=== PATIENT | female | born 1960 | race Caucasian/White ===

== ENCOUNTER 2018-10-17 08:30 | Emergency (ER) | payer OTHER, SELFPAY ==
[2018-10-17 08:36] VITALS: BP 149/94; PULSE 94; RESP 18; TEMP 36.7; O2SAT 100
--- NOTE | 2018-10-17 08:56 | ED.GENADUL_ITS ---
Discharge Plan Disposition Patient Disposition: HOME Condition: Stable Discharge Details Chief Complaint: Allergic Clinical Impression: Acute allergic reaction Primary Care Provider: Mary Medina ED Provider: Sergio Smith Home Meds and New Rx's Prescriptions: New prednisone 20 mg tablet 40 mg PO DAILY 4 Days Qty: 8 RF: 0 Continued cetirizine [Zyrtec] 10 MG tablet 10 mg PO DAILY RF: 0 ibuprofen 200 MG capsule 200 mg PO Q6H PRN RF: 0 Discharge Instructions Instructions: General Allergic Reaction (ED) Additional Instructions: You may continue to use [id number] Benadryl 50 mg every 4 hours as needed for itching or swelling, he may also take [id number] ranitidine/Zyrtec 150 mg daily. Please take steroids as prescribed and return immediately to the emergency department for any new or significant worsening of symptoms, difficulty breathing, or any further concerns. Otherwise follow-up with your primary care provider as needed. Referrals: Mary Medina, [facility] [Primary Care Provider] - (as needed) Medical Decision Making Patient presenting to the emergency department for chief complaint of lip swelling. Patient states that this started approximately 30 minutes after having a taco with vlad guadalupe. Patient states multiple food allergies. She reports taking Benadryl last night and this morning with no improvement of right upper lip swelling. Patient denies any difficulty breathing or swallowing, swelling to her tongue or throat, denies any other symptoms. Physical exam does show an isolated right upper lip that is swollen otherwise no swelling to the tongue, oropharynx, no respiratory distress, no systemic symptoms. At this time I do not feel that patient is presenting with anaphylactic type reaction but with acute allergic reaction. Plan to treat patient with additional Benadryl, Zantac, and steroids and brief observation. Patient was in the ER for over 1 hour with no new or worsening symptoms, no difficulty breathing, no spread of symptoms. Due to this and that initial onset was approximately 17 hours ago I do not feel the patient needs to have further observation in the emergency department. Patient was placed upon prednisone for an additional 4 days and instructed on use of Benadryl and Zantac as needed. Return precautions were discussed. After discussion of diagnosis and plan of care patient has no further needs, questions, or concerns and states clear understanding to return to the emergency department for any worsening symptoms. HPI General Mode of arrival: ambulatory . Date/Time Provider Initiated Documentation: 10/17/18 08:31 . Limitations to Documentation: no limitations . Information obtained by: patient . History of Present Illness 58 year old F presents to the emergency department with the chief complaint of Allergic reaction, described as mild, with intensity rated at 6. and is localized to the face and right (Upper). Patient started experiencing this hour(s) (17) and it has been constant. No relieving factors improve symptom(s), Eating worsens symptoms . Patient notes no other symptoms.. Patient did receive the following treatments prior to arrival, other (Benadryl) Related Data Home Medications Medication Instructions Recorded Confirmed cetirizine [Zyrtec] 10 mg PO DAILY tab-cap NS 04/27/13 10/17/18 ibuprofen 200 mg PO Q6H PRN tab-cap NS 04/27/13 10/17/18 prednisone 40 mg PO DAILY 4 Days #8 tab 10/17/18 Previous Rx's Medication Instructions Recorded prednisone 40 mg PO DAILY 4 Days #8 tab 10/17/18 Allergies Allergy/AdvReac Type Severity Reaction Status Date / Time apple Allergy Unverified 10/17/18 08:43 peach Allergy Unverified 10/17/18 08:43 pear Allergy Unverified 10/17/18 08:43 plum Allergy Unverified 10/17/18 08:43 tree and shrub pollen Allergy Unverified 10/17/18 08:43 tree nut Allergy Unverified 10/17/18 08:43 erythromycin base AdvReac Intermediate vomits Unverified 08/29/16 08:16 blood General Stated Complaint: Allergic ELISHA: 3 Review of Systems Constitutional Denies fever(s) ENT Reports as per HPI, Reports lip swelling, Denies sore throat, Denies throat swelling and Denies tongue swelling Cardiovascular Denies chest pain and Denies dyspnea Respiratory Denies cough, Denies dyspnea and Denies wheezing Gastrointestinal Denies diarrhea and Denies nausea Integumentary/Breasts Denies rash Allergic/Immunologic Reports lip swelling, Denies throat swelling, Denies tongue swelling and Denies wheezing PFSH Family History Mother Osteoporosis Father Diabetes Glaucoma Hypertension Stroke Daughter No problems noted. Daughter No problems noted. Son No problems noted. Social History Smoking/Tobacco Use Status: Never Alcohol Intake: current Alcohol Intake frequency: a few times a month Substance use type: does not use Do you feel safe at home: Yes Do you feel safe in your relationship?: Yes Exam Const General: cooperative, no acute distress and not ill appearing Orientation: alert, awake and oriented x3 HENMT Mouth: oral mucosae normal, tongue normal, moist mucous membranes, no drooling, lip abnormal right upper swelling; without lacerations, without lesions and without fissure, no muffled voice and no trismus Teeth and gingiva: gingiva normal Throat: posterior oropharynx normal, tonsils normal and uvula midline Resp Effort & Inspection: normal respiratory effort, able to speak in complete sentences and no respiratory distress Auscultation: clear to auscultation bilaterally Cardio Rate: regular rate Rhythm: regular rhythm Heart Sounds: S1 normal, S2 normal, no click, no gallops, no murmurs and no rubs Skin General skin exam: no rashes or lesions noted Neuro General: alert, awake, oriented x3, moves all extremities and no focal motor deficits Sensory Exam: no sensory deficits noted Course Vital Signs Temperature 36.7 C 10/17/18 08:36 Pulse 94 H 10/17/18 08:36 Respiratory Rate 18 10/17/18 08:36 Blood Pressure 149/94 H 10/17/18 08:36 Pulse Oximetry 100 10/17/18 08:36 Temperature 36.7 C 10/17/18 08:36 Temperature Source Skin 10/17/18 08:36 Pulse 94 H 10/17/18 08:36 Respiratory Rate 18 10/17/18 08:36 Respiratory Effort Non-Labored 10/17/18 08:45 Respiratory Pattern Normal 10/17/18 08:45 Blood Pressure 149/94 H 10/17/18 08:36 Blood Pressure Position Sitting 10/17/18 08:36 Pulse Oximetry 100 10/17/18 08:36 Oxygen Delivery Method Room Air 10/17/18 08:36 Oxygen Flow Rate 0 10/17/18 08:36 Pain Level 6 10/17/18 08:36
[2018-10-17] MEDS: predniSONE 20 MG TAB 60 MG PO (09:04)
[2018-10-17] MEDS: diphenhydrAMINE 25 MG CAP PO (09:04)
[2018-10-17 09:23] VITALS: BP 131/93; PULSE 73; RESP 18; TEMP 36.5; O2SAT 100
== END 2018-10-17 09:37 | disposition home or self-care (01) ==
LOC: ER 09:43
PROVIDERS: Emergency Provider Nurse Practitioner Family; PCP Nurse Practitioner
DX: T78.40XA Allergy, unspecified, initial encounter (principal)
CPT/HCPCS: 99283; J7512

== ENCOUNTER 2020-02-21 02:26 | Outpatient (CLI) | payer OTHER, SELFPAY ==
[2020-02-21 09:49] LABS: Bilirubin Negative (Negative); Blood Negative (Negative); Clarity Clear (Clear); Glucose Negative (Negative); Ketones Negative (Negative); Leukocyte Esterase Negative (Negative); Nitrite Negative (Negative); Specific Gravity 1.025 (1.005-1.025); Urobilinogen 0.2 EU/dL (Up TO 0.2); pH 6.5 (5-8)
[2020-02-21 09:51] LABS: HCT 44.3 % (36.0-46.0); HGB 14.8 g/dL (11.2-15.7); MCH 29.3 pg (27.0-33.0); MCHC 33.4 % (32.0-36.0); MCV 87.7 fL (80-95); Platelet Count 287 10^3/uL (130-400); RBC 5.05 10^6/uL (3.93-5.22); RDW 12.7 % (11.7-14.6); RDW-SD 40.6 fL; WBC 5.89 10^3/uL (4.4-10.8)
[2020-02-21 11:19] LABS: ALT 29 U/L (14-59); AST 21 U/L (15-37); Alkaline Phosphatase 79 U/L (46-116); Anion Gap 7.9 mmol/L (3-11); BUN 16 mg/dL (7-18); Bilirubin, Total 0.5 mg/dL (0.2-1.0); CO2 28.1 mmol/L (21.0-32.0); CREATININE 0.94 mg/dL (0.55-1.02); Calcium 9.1 mg/dL (8.5-10.1); Calculated LDL 157 mg/dL (<100); Chloride 103 mmol/L (98-107); Cholesterol 243 mg/dL (<200); Glucose 89 mg/dL (74-106); HDL Cholesterol 70 mg/dL (40-60); Sodium 139 mmol/L (136-145); Total Protein 7.5 g/dL (6.4-8.2); Triglyceride 82 mg/dL (<150)
== END 2020-02-21 02:46 ==
PROVIDERS: PCP Nurse Practitioner; Visit Provider Nurse Practitioner
DX: I10 Essential (primary) hypertension (principal); R10.11 Right upper quadrant pain; R10.2 Pelvic and perineal pain
CPT/HCPCS: 36415; 80053; 80061; 85027; 81003

== ENCOUNTER 2020-03-06 02:00 | Outpatient (CLI) | payer OTHER, SELFPAY ==
--- NOTE | 2020-03-06 06:47 | DI.US_ITS ---
EXAM: US ABD PELV TRANSVAG NON-OB CLINICAL HISTORY: RUQ pain,R10.11 TECHNIQUE: Ultrasound of the complete upper abdomen and pelvis was performed (both transabdominal an d transvaginal). COMPARISON: No exams were available for comparison FINDINGS: ABDOMEN: There is no ascites. Liver: Normal size. Echogenic implying steatosis. No discrete focal hepatic lesions identified. Gallbladder/biliary: There are no gallstones or gallbladder wall edema. No pericholecystic fluid. C ommon hepatic duct is not dilated measuring 3-4 millimeters. Pancreas: Unremarkable. No masses nor dilatation of the pancreatic duct. Spleen: Not enlarged. Kidneys: No significant focal findings. No hydronephrosis. Abdominal aorta: No aneurysm seen IVC: Patent PELVIS: UTERUS: Measures 6 cm length x 2.6 cm AP x 4.5 cm wide. There are no uterine fibroids. Endometrial thickness measures 5-6 mm. There are multiple cystic structures noted within the endometrium as well as in the lower uterine cav ity and cervix. RIGHT OVARY: Measures 1.6 x 0.7 x 0.9 cm No significant cysts nor masses evident in the right ovary. Vascular flow demonstrated LEFT OVARY: Measures 1.9 x 0.9 x 0.8 cm There is a small cyst in the left ovary measuring approximately 6 x 7 millimeters. Vascular flow dem onstrated in the left ovary. CUL-DE-SAC: No free fluid evident. IMPRESSION: 1. No significant ultrasound findings in the upper abdomen. 2. Abnormal endometrium. There are multiple cystic structures in the endometrial cavity and also inv olving lower uterine segment and upper cervix. Gynecologic referral recommended. 3. No evidence of mass nor free fluid evident in the adnexal regions and cul-de-sac. No ascites.
== END 2020-03-06 02:20 ==
PROVIDERS: PCP Nurse Practitioner; Visit Provider Nurse Practitioner
DX: N83.202 Unspecified ovarian cyst, left side; N85.8 Other specified noninflammatory disorders of uterus
CPT/HCPCS: 76700; 76830; 76856

== ENCOUNTER 2020-03-09 09:39 | Outpatient (REF) | payer OTHER, SELFPAY ==
--- NOTE | 2020-03-09 09:00 | PAPFT_PTH ---
PATIENT: Yasmin Douglas LOC: [facility] U#:[id number] AGE/SX: 59/F ROOM: RE03/09/[address]: Lesa Dumont DO : 1960 BED: DIS: 03/09/2020 SPEC #: [id number] RECD: 03/09/20 12:50 STATUS: SERAFIN REDayanara #: [id number] TREVIN: 03/09/20 09:[address]: Lesa Dumont DEPT: [facility] Cytology RECD BY: Gabrielle Fay ENTERED: 03/09/20 12:51 SP TYPE: PAPFT MOHINI DR: Mary Medina APRN Tissues: 1 - CX/ENDOCX FOR PAP SMEARS Procedures: PAP THIN PREP/UVM Screening HPV DNA PROBE Comments: [id number]
== END 2020-03-09 09:59 ==
LOC: LBN 09:39
PROVIDERS: PCP Nurse Practitioner; Visit Provider Obstetrics & Gynecology
DX: Z12.4 Encounter for screening for malignant neoplasm of cervix (principal); Z11.51 Encounter for screening for human papillomavirus (HPV)
CPT/HCPCS: 88142; 87624

== ENCOUNTER 2020-03-17 04:35 | Outpatient (CLI) | payer OTHER, SELFPAY ==
--- NOTE | 2020-03-17 15:47 | DI.MAMMO_ITS ---
EXAM: MG MAMMO SCREENING CLINICAL HISTORY: screening,Z12.39. TECHNIQUE: Bilateral full field digital CC and MLO mammographic images were obtained with 3D tomosyn thesis and utilizing computer aided detection (CAD). COMPARISON: Prior mammograms dating back to 2011, the most recent being March 2016. FINDINGS: There are no CAD designations. There are no spiculated masses nor malignant appearing microcalcification groups. There is no signif icant architectural distortion nor skin thickening-retraction. IMPRESSION: No radiographic evidence of malignancy. BI-RADS Category 1 - Negative Breast Density - Category B - Scattered areas of fibroglandular density Breast density Category C or D implies that the patient has dense breast tissue. Dense breast tissue can make it harder to find cancer on a mammogram. Dense breast tissue is also associated with an incr eased risk of breast cancer. This information about the result of the mammogram report was provided to the patient to raise their awareness. Use this report when you speak with the patient about their risks for breast cancer, which includes their family history. At that time, you may recommend additional screening tests (Ultrasoun d or MRI) as these tests may add significant information. A negative radiographic report should not delay biopsy if a dominant or clinically suspicious mass is present. Up to ten percent of cancers are not identified on mammography. A negative report may reinforce clinical impression. Adenosis and dense breasts may obscure an underlying neoplasm. False positive reports average 6 to 10%. Patient will receive a letter notifying them of these results.
== END 2020-03-17 04:55 ==
PROVIDERS: PCP Nurse Practitioner; Visit Provider Nurse Practitioner
DX: Z12.31 Encounter for screening mammogram for malignant neoplasm of breast (principal)
CPT/HCPCS: 77063; 77067

== ENCOUNTER 2020-03-24 01:22 | Outpatient (CLI) | payer OTHER, SELFPAY ==
[2020-03-24 08:52] LABS: Abs Immature Grans 0.01 10^3/uL (0.0-0.06); Absolute Basophil Count 0.03 10^3/uL (0.0-0.2); Absolute Eosinophil Count 0.34 10^3/uL (0.0-0.7); Absolute Lymphocyte Count 1.71 10^3/uL (1.2-3.4); Absolute Monocyte Count 0.34 10^3/uL (0.1-0.8); Absolute Neutrophil Count 2.56 10^3/uL (1.2-6.7); Basophils % 0.6; Eosinophils % 6.8; HCT 43.8 % (36.0-46.0); HGB 14.6 g/dL (11.2-15.7); Immature Grans % 0.2; Lymphocytes % 34.3; MCH 29.8 pg (27.0-33.0); MCHC 33.3 % (32.0-36.0); MCV 89.4 fL (80-95); MPV 9.9 fL (8.0-11.0); Monocytes % 6.8; Neutrophils % 51.3; Nucleated RBC 0 %; Platelet Count 292 10^3/uL (130-400); RDW 12.4 % (11.7-14.6); RDW-SD 40.9 fL; WBC 4.99 10^3/uL (4.4-10.8)
== END 2020-03-24 01:42 ==
PROVIDERS: PCP Nurse Practitioner; Visit Provider Obstetrics & Gynecology
DX: R10.2 Pelvic and perineal pain (principal); R93.89 Abnormal findings on diagnostic imaging of other specified body structures; Z01.818 Encounter for other preprocedural examination; Z01.812 Encounter for preprocedural laboratory examination; Z20.822 Contact with and (suspected) exposure to COVID-19; Z11.52 Encounter for screening for COVID-19
CPT/HCPCS: 36415; 86850; 86900; 86901; U0003; 85025

== ENCOUNTER 2020-03-24 01:22 | Outpatient (CLI) | payer OTHER, SELFPAY ==
[2020-03-26 10:34] LABS: COVID-19 RT-PCR Result NEGATIVE (Negative)
== END 2020-03-24 01:42 ==
PROVIDERS: PCP Nurse Practitioner; Visit Provider Obstetrics & Gynecology
DX: Z11.52 Encounter for screening for COVID-19 (principal)
CPT/HCPCS: U0003

== ENCOUNTER 2020-03-29 06:11 | Day surgery (SDC) | payer OTHER, SELFPAY ==
[2020-03-29 06:32] VITALS: BP 133/85; PULSE 81; RESP 16; TEMP 36.8; O2SAT 98
[2020-03-29] MEDS: Lactated Ringers 1,000 ML 125 ML IV (06:50)
--- NOTE | 2020-03-29 07:45 | ENDOMET_PTH ---
PATIENT: Yasmin Douglas LOC: [facility] U#:[id number] AGE/SX: 59/F ROOM: RE03/29/[address]: Lesa Dumont DO : 1960 BED: DIS: 03/29/2020 SPEC #: [id number] RECD: 03/29/20 12:54 STATUS: SERAFIN REDayanara #: [id number] TREVIN: 03/29/20 07:[address]: Lesa Dumont DEPT: Surgical Specimen RECD BY: Gabrielle Fay ENTERED: 03/29/20 12:54 SP TYPE: Endomet OTHR DR: Mary Medina APRN Tissues: 1 - ENDOMETRIUM BX/CURRETTE 2 - ENDOCERVICAL BX/CURRETTE Procedures: GROSS AND MICRO LEVEL 4 Comments: [id number]
--- NOTE | 2020-03-29 08:06 | W.PM.OP ---
Date of service: 03/29/20 Time of Service: 08:06 Operative Note Operative Note DATE OF PROCEDURE: 03/29/20 PRE-OP DIAGNOSIS: Abnormal pelvic ultrasound POST-OP DIAGNOSIS: same PROCEDURE: Hysteroscopy with dilation and curettage SURGEON: Lesa Dumont ANESTHESIA: MAC ESTIMATED BLOOD LOSS: 5 PATHOLOGY: other (1. Endocervical curettage 2. Endometrial curettage) COMPLICATIONS: None Patient was transported to: PACU Patient's condition: stable Findings: Smooth regular endometrial lining Procedure Description: Patient was taken the operating suite with IV running where she placed in dorsal supine position anesthesia administered by general with monitored anesthesia care. She was then placed in the modified dorsal lithotomy position and prepped and draped in the usual sterile fashion. Exam under anesthesia revealed a uterus that is midline and mobile with good pelvic support. Speculum was inserted into the vaginal vault and a single-tooth tenaculum used to grasp the anterior lip of the cervix. Cervical os dilated the point that a 5 mm hysteroscope could be with ease. Normal saline was used to distend the endometrial cavity and with clear inspection of the endocervix and endometrium, the cavity appeared smooth and regular and somewhat atrophic. At this point hysteroscope portion was terminated. A gentle sharp curettage of the endocervix and endometrium was performed for scant tissue. Tenaculum was removed and sites were hemostatic. Speculum was then removed and the patient was returned to the dorsal supine position and awoke from anesthesia with ease. She was taken to recovery room in stable condition. EBL: 5 mL Complications: None apparent Specimens: 1. Endocervical curettage 2. Endometrial curettage
[2020-03-29 09:00] VITALS: BP 114/69; PULSE 70; RESP 16; TEMP 36.4; O2SAT 97
== END 2020-03-29 09:30 | disposition home or self-care (01) ==
PROVIDERS: PCP Nurse Practitioner; Visit Provider Obstetrics & Gynecology
PROC: 0UDB8ZZ Extraction of Endometrium, Via Natural or Artificial Opening Endoscopic (ICD-10-PCS; CPT 58558; principal; 2020-03-29 07:30)
DX: R93.89 Abnormal findings on diagnostic imaging of other specified body structures (principal); Z98.890 Other specified postprocedural states
CPT/HCPCS: 58558; 86850; 86900; 86901; 88305; J0360; J1885; J2001; J2250; J3010

== ENCOUNTER 2020-04-05 15:46 | Outpatient (REF) | payer OTHER, SELFPAY ==
[2020-04-05 20:25] LABS: Bilirubin Negative (Negative); Blood Negative (Negative); Clarity Clear (Clear); Glucose Negative (Negative); Ketones Negative (Negative); Leukocyte Esterase Negative (Negative); Nitrite Negative (Negative); Urobilinogen 0.2 EU/dL (Up TO 0.2); pH 5.5 (5-8)
== END 2020-04-05 15:47 | disposition home or self-care (01) ==
LOC: LBO 15:46
PROVIDERS: PCP Nurse Practitioner; Visit Provider Nurse Practitioner
DX: R35.0 Frequency of micturition (principal); R10.2 Pelvic and perineal pain
CPT/HCPCS: 81003; 87086

== ENCOUNTER 2021-07-02 02:21 | Outpatient (CLI) | payer OTHER, SELFPAY ==
[2021-07-02 07:32] LABS: HCT 41.5 % (36.0-46.0); HGB 13.4 g/dL (11.2-15.7); MCH 29.5 pg (27.0-33.0); MCHC 32.3 % (32.0-36.0); MCV 91 fL (80-95); MPV 9.8 fL (8.0-11.0); Platelet Count 261 10^3/uL (130-400); RBC 4.55 10^6/uL (3.93-5.22); RDW 13.4 % (11.7-14.6); RDW-SD 45.2 fL; WBC 6.09 10^3/uL (4.4-10.8)
[2021-07-02 08:54] LABS: Vitamin D 25 Total 41.6 ng/mL (30-100)
[2021-07-02 09:51] LABS: ALT 29 U/L (14-59); AST 20 U/L (15-37); Albumin 3.7 g/dL (3.4-5.0); Alkaline Phosphatase 85 U/L (46-116); Anion Gap 9.3 mmol/L (3-11); BUN 16 mg/dL (7-18); Bilirubin, Total 0.5 mg/dL (0.2-1.0); CO2 28.7 mmol/L (21.0-32.0); CREATININE 0.9 mg/dL (0.55-1.02); Calculated LDL 151 mg/dL (<100); Chloride 105 mmol/L (98-107); Cholesterol 236 mg/dL (<200); Ferritin 88 ng/mL (8-252); Glucose 100 mg/dL (74-106); HDL Cholesterol 72 mg/dL (40-60); Potassium 3.8 mmol/L (3.5-5.1); Sodium 143 mmol/L (136-145); TSH (W/Ref FT4) 2.35 uIU/mL (0.36-3.74); Total Protein 7.2 g/dL (6.4-8.2); Triglyceride 67 mg/dL (<150); Vitamin B12 721 pg/mL (193-986)
== END 2021-07-02 02:22 | disposition home or self-care (01) ==
LOC: LBO 02:21
PROVIDERS: PCP Nurse Practitioner; Visit Provider Nurse Practitioner
DX: I10 Essential (primary) hypertension (principal); R53.83 Other fatigue; E78.5 Hyperlipidemia, unspecified; E55.9 Vitamin D deficiency, unspecified
CPT/HCPCS: 36415; 80053; 80061; 82306; 85027; 82607; 82728; 84443

== ENCOUNTER 2022-04-15 13:32 | Outpatient (CLI) | payer OTHER, SELFPAY ==
--- NOTE | 2022-04-15 09:45 | DI.MRI_ITS ---
Exam(s) MR BRAIN WO EXAM: MR BRAIN WO CLINICAL HISTORY: Headache 5-7/10 for 3.5 weeks. Episode fainting,r51.9 TECHNIQUE: Multiplanar multisequence MRI of the brain was performed. COMPARISON: No exams were available for comparison FINDINGS: VENTRICLES AND EXTRA AXIAL SPACES: Normal in size and morphology for the patient's age. MIDLINE SHIFT: None. CEREBRAL PARENCHYMA: No focus of restricted diffusion to suggest acute infarct. No space-occupying le courtney identified. HEMORRHAGE: None. BRAINSTEM/CEREBELLUM: Normal. VISUALIZED PARANASAL SINUSES/MASTOIDS:Clear. [place]: Normal flow void. PITUIT[place] GL[place]: Unremarkable. ORBITS: Unremarkable. IMPRESSION: Unremarkable MRI of the brain. DATA REPOSITORY:
== END 2022-04-15 13:52 ==
LOC: DI 13:33
PROVIDERS: PCP Nurse Practitioner; Visit Provider Nurse Practitioner
DX: R51.9 Headache, unspecified (principal)
CPT/HCPCS: 70551

== ENCOUNTER 2022-07-01 02:56 | Outpatient (CLI) | payer OTHER, SELFPAY ==
--- NOTE | 2022-07-01 07:45 | DI.MAMMO_ITS ---
Exam(s) MAMMO SCREENING EXAM: MAMMO SCREENING CLINICAL HISTORY: screening,Z12.39 TECHNIQUE: Bilateral full field digital CC and MLO mammographic images were obtained with 3D tomosyn thesis and utilizing computer aided detection (CAD). COMPARISON: Available for comparison. FINDINGS: Masses/Architectural Distortion: None seen. Microcalcifications: No suspicious pleomorphic-type are seen. Skin Thickening/Nipple Retraction: None. IMPRESSION: 1. No significant interval change with no specific features of malignancy noted. 2. Unless there is more urgent need, screening mammography is recommended, as per [place] [employer] guidelines. BI-RADS Category 1 - Negative Breast Density - Category B - Scattered areas of fibroglandular density Breast density category C or D implies that the patient has dense breast tissue. Dense breast tissue is very common and is not abnormal but dense breast tissue can make it harder to find cancer on a ma mmogram. Also, dense breast tissue may increase their breast cancer risk. This information about the result of the mammogram report was provided to the patient to raise their awareness. Use this report when you speak with the patient about their risks for breast cancer, which includes their family hist ory. At that time, you may recommend for more screening tests (Ultrasound or MRI) as they might be us eful based on their risk. A negative radiographic report should not delay biopsy if a dominant or clinically suspicious mass is present. Up to ten percent of cancers are not identified on mammography. A negative report may reinforce clinical impression. Adenosis and dense breasts may obscure an underlying neoplasm. False positive reports average 6 to 10%. Patient will receive a letter notifying them of these results.
== END 2022-07-01 03:16 ==
LOC: DI 02:57
PROVIDERS: PCP Nurse Practitioner; Visit Provider Nurse Practitioner
DX: Z12.31 Encounter for screening mammogram for malignant neoplasm of breast (principal)
CPT/HCPCS: 77063; 77067

== ENCOUNTER 2022-08-22 01:19 | Outpatient (CLI) | payer OTHER, SELFPAY ==
--- NOTE | 2022-08-22 08:30 | DI.DEXA_ITS ---
Exam(s) XR DEXA BONE DENSITY W/WO TERESITA EXAM: XR DEXA BONE DENSITY W/WO TERESITA CLINICAL HISTORY: Menopause age 42. Screen osteoporosis, ASYMPTOMATIC MENOPAUSAL STATE, Z78.0 TECHNIQUE: Holo[employer] Horizon C densitometer analysis of left hip, lumbar spine and left forearm. Lat eral survey image of the thoracic and lumbar spine. COMPARISON: 2013 FINDINGS: Lateral view of the thoracic and lumbar spine shows no evidence of compression fractures. Bone mineral density measurements of the lumbar spine correspond to a total T-score of -0.5, in the normal range. 2.6 percent increase compared with prior. Bone mineral density measurements of the left hip correspond to a total T-score of -0.8. The femora l neck T-score is -0.9, in the normal range. 7.4 percent decrease from prior.. The left forearm bone mineral density measurements correspond to a T-score of the distal 3rd of -0.7 , in the normal range. No significant change from prior. IMPRESSION: Normal bone mineral density. 7.4 percent decrease in bone mineral density of the left hip compared w ith 2013.
== END 2022-08-22 01:39 ==
PROVIDERS: PCP Nurse Practitioner; Visit Provider Nurse Practitioner
DX: Z78.0 Asymptomatic menopausal state (principal); Z13.820 Encounter for screening for osteoporosis
CPT/HCPCS: 77080

== ENCOUNTER 2023-06-30 05:36 | Outpatient (CLI) | payer OTHER, SELFPAY ==
[2023-06-30 08:44] LABS: ALT 31 U/L (14-59); AST 17 U/L (15-37); Albumin 3.8 g/dL (3.4-5.0); Alkaline Phosphatase 83 U/L (46-116); Anion Gap 11.5 mmol/L (3-11); BUN 18 mg/dL (7-18); Bilirubin, Total 0.4 mg/dL (0.2-1.0); CO2 24.5 mmol/L (21.0-32.0); CREATININE 0.9 mg/dL (0.55-1.02); Calcium 9.3 mg/dL (8.5-10.1); Calculated LDL 148 mg/dL (<100); Chloride 104 mmol/L (98-107); Cholesterol 226 mg/dL (<200); Estimated GFR 73.19 (mL/min/1.73m2); Glucose 98 mg/dL (74-106); HDL Cholesterol 66 mg/dL (40-60); Potassium 3.9 mmol/L (3.5-5.1); Sodium 140 mmol/L (136-145); Total Protein 7.8 g/dL (6.4-8.2); Triglyceride 61 mg/dL (<150)
== END 2023-06-30 05:37 | disposition home or self-care (01) ==
LOC: LBO 05:36
PROVIDERS: PCP Nurse Practitioner; Referring Provider Nurse Practitioner; Visit Provider Nurse Practitioner
DX: I10 Essential (primary) hypertension (principal)
CPT/HCPCS: 36415; 80053; 80061

== ENCOUNTER 2024-04-19 01:10 | Outpatient (CLI) | payer BC, SELFPAY ==
--- NOTE | 2024-04-19 | DI.RAD_ITS ---
Exam(s) XR KNEE RT 3V AP,LAT,WILFREDO EXAM: XR KNEE RT 3V AP,LAT,WILFREDO CLINICAL HISTORY: M25.561 RT knee pain, Chronic w/recent worsening symptoms, decreased. TECHNIQUE: 2D digital imaging was performed. COMPARISON: No exams were available for comparison FINDINGS: 3 views No evidence of acute fracture but there does appear to be a significant joint effusion. In addition, there is indentation of the cortical surface of the lateral femoral condyle. These findings suggest an internal derangement such as possible ACL tear. Otherwise, there are only mild degenerative changes in the medial lateral compartments. No significa nt joint space narrowing. Bone density is normal. There are no osseous lesions. IMPRESSION: No acute osseous findings but there findings as described above which may indicate the presence of a significant internal derangement such as ACL tear. DATA REPOSITORY: RADIATION DOSE DELIVERED:
--- NOTE | 2024-04-19 14:30 | DI.US_ITS ---
APPROVED REPORT EXAM: Comprehensive 2D, Doppler, and color-flow Echocardiogram Patient Location: Out-Patient [employer] [employer] Operator: Rohan Lambert RDCS (AE) Indications: HTN and syncopal episodes Conclusion Normal left ventricular wall thickness and chamber size. Ejection fraction is 65 to 70%. Wall motio n is normal Normal right ventricular size and function Both atria are normal in size Aortic valve is mildly sclerotic and trileaflet without stenosis or regurgitation Structurally normal mitral valve with trace regurgitation Wall motion Left Ventricle The left ventricle is normal size. Left ventricular systolic function is normal. The left ventricular ejection fraction is within the normal range. There is normal left ventricular wall thickness. There is normal LV segmental wall motion. There is no ventricular septal defect visualized. LVEF is 65-70% . Right Ventricle The right ventricle is normal size. The right ventricular systolic function is normal. Atria The left atrium size is normal. The right atrium size is normal. The interatrial septum is intact wit h no evidence for an atrial septal defect. Aortic Valve The aortic valve is mildly sclerotic Aortic valve is trileaflet. There is no aortic valvular stenosis . No aortic regurgitation is present. Mitral Valve The mitral valve is normal in structure. No evidence of mitral valve stenosis. Trace mitral regurgita tion. Tricuspid Valve The tricuspid valve is normal in structure. There is no tricuspid valve stenosis. There is no tricusp id valve regurgitation noted. Pulmonic Valve The pulmonary valve is normal in structure. There is no pulmonic valvular stenosis. Trivial pulmonic regurgitation. Great Vessels The aortic root is normal in size. The ascending aorta is normal in size. Aortic arch is normal in ca liber. IVC is normal in size and collapses >50% with inspiration. Pericardium There is no pericardial effusion. 2D Dimensions IVSD d PLAX 0.68 cm Ao Root d 2.50 cm LVPW d PLAX 0.69 cm Ao Asc Diam d 2.82 cm LVID d PLAX 5.06 cm LVDs 3.04 cm LV EF Teichholz 70.3 % FS 39.96 % LV EDV (Teich) 121.7 mL LV ESV (Teich) 36.1 mL Stroke Vol Index (Teich) 45.99 M-Mode TAPSE 2.22 cm (M/F) >1.7 Auto EF LV EDV A4C 94.9 mL LV EDV A2C 82.0 mL LV EDV BP 91.0 mL LV ESV A4C 33.1 mL LV ESV A2C 27.9 mL LV ESV BP 30.4 mL LVEF(%) A4C 65.1 % LVEF(%) A2C 66.0 % LVEF(%) BP 66.7 % LV SV A4C 61.8 ml LV SV A2C 54.1 ml LV SV BP 60.7 ml LV CO A4C 4.9 L/min LV CO A2C 3.6 L/min LV CO BP 4.3 L/min HR A4C 79.65 BPM HR A2C 67.14 BPM LV EDV Index (BP) LA Volume LA Length A4C 3.2 cm LA Length A2C 4.3 cm LA Area A4C s 9.11 cm2 LA Area A2C s 13.29 cm2 LA Vol A4C A-L 21.92 mL LA Vol A2C A-L 35.26 mL LA Vol Biplane A-L 32.0 mL LA Vol/BSA A4C A-L LA Vol/BSA A2C A-L LA Vol/BSA BP A-L 17.2 mL/m2 LA Vol A4C MOD 19.4 mL LA Vol A2C MOD 31.5 mL LA Vol BP MOD 28.3 mL RA Volume RA Area A4C 7.4 cm2 RA ESV A4C (A-L) 11.1mL RA Vol/BSA A4C A-L RA Length A4C 4.2 cm RA ESV A4C (MOD) 10.6mL LV Diastology MV E' medial 0.083 (>0.07 m/s) MV E Vmax 0.80 (0.4-1.3 m/s) MV E/E' MED 9.57 (<14) MV A Vmax 0.75 (0.4-1.3 m/s) MV E' lateral 0.095 (>0.1 m/s) E/A Ratio 1.00 MV E/E' LAT 8.44 (<14) MV E' Average 0.089 m/s MV E/E'(average) 8.97 Aortic Valve AoV Vmax 1.34 m/s LVOT Vmax 1.22 m/s AoV Peak Grad 7.2 mmHg LVOT Peak Grad 5.9 mmHg AoV Area (Vmax) 1.91 cm2 LVOT VTI 0.223 m AoV VTI 0.282 m LVOT Mean Grad 3.4 mmHg AoV Mean Fady. 0.93 m/s LVOT SV 47.00 mL AoV Mean Grad 4.0 mmHg LVOT Diam s 1.60 cm AoV Area (VTI) 1.67 cm2 AV Regurg Peak Gr. 7.19 mmHg Mitral Valve MV DT 122 (160-240 msec) MV Vmax TIPS 0.89 m/s MV Mean Grad 1.6 (<2mmHg) MV VTI 0.263 m Pulmonary Valve PV Vmax 1.03 (0.5-1.5 m/s) RVOT Vmax 0.88 m/s PV Peak Grad 4.2 mmHg RVOT Peak Gr. 3.1 mmHg PV Mean Fady 0.72 m/s RVOT VTI 0.181 m PV Mean Grad 2.3 mmHg RVOT Mean Gr. 1.6 mmHg Tricuspid Valve RA Pressure 3.00 mmHg TR Vmax 2.23 m/s TR Peak Grad 19.9 mmHg RVSP (TR) 22.9 mmHg
== END 2024-04-19 01:30 ==
PROVIDERS: Visit Provider Internal Medicine Cardiovascular Disease
DX: I35.0 Nonrheumatic aortic (valve) stenosis (principal); M25.561 Pain in right knee; I10 Essential (primary) hypertension; R55 Syncope and collapse
CPT/HCPCS: 73562; 93306